=== PATIENT | female | born 1990 | race Hispanic/Latino ===

== ENCOUNTER 2017-10-31 15:15 | Emergency (ER) | payer MEDICAID, OTHER | END 2017-10-31 15:46 | disposition home or self-care (01) | LOC: EDH 15:15 | DX: H66.002 Acute suppurative otitis media without spontaneous rupture of ear drum, left ear (principal); J45.909 Unspecified asthma, uncomplicated; Z72.0 Tobacco use; Z88.8 Allergy status to other drugs, medicaments and biological substances ==